=== PATIENT | female | born 1970 | race Caucasian/White ===

== ENCOUNTER → 2022-09-24 11:58 | Outpatient (CLI) | payer OTHER, MEDICAID, SELFPAY ==
--- NOTE | 2022-09-24 | DI.ECHO.S_ITS ---
[place] [facility] +---------+ : : [address] : : : : [id number] : : : : Phone: [phone] +---------+ Echocardiogram Report + + :Name: MORGAN DUKE Study Date: 09/24/2022 Height: 64 in : :[facility] ReadingLocation: Weight: 160 lb : : Gender: Female BSA: 1.8 m2 : :: 1970 Age: 52 yrs BP: 108/86 mmHg: :Reason For Study: PERICARDIAL EFFUSION : :Ordering Physician: BECKY, : :RODRIGO Performed By: Rebecca Gore : :Referring: RODRIGO ROLON : + + Interpretation Summary 1) Normal left ventricular thickness and size with low normal systolic function (EF 50-55%). 2) Normal right ventricular size and function. 3) No significant valvular abnormalities. 4) There is a large circumfrential pericardial effusion that is largest anteriorly (best seen from parasternal axis). No Echo and no doppler evidence of cardiac tamponade. 5) No prior Echo available for comparison. Procedure: A two-dimensional transthoracic echocardiogram with color flow and Doppler was performed. The study quality was technically adequate. There is no prior echocardiogram noted for this patient. The patient was in sinus rhythm with heart rates between 84-95 bpm during the exam. Left Ventricle: The left ventricle is normal in size and wall thickness. The ejection fraction is estimated to be 50-55%. There are no obvious focal wall motion abnormalities noted but poor endocardial definition reduces the sensitivity for the detection of such. Right Ventricle: The right ventricle is normal in size and function. Atria: The left atrial size is normal. Right atrial size is normal. There is no Doppler evidence for an interatrial shunt. Mitral Valve: The mitral valve is normal in structure and function. There is trace mitral regurgitation. Aortic Valve: The aortic valve is trileaflet. The aortic valve opens well. There is no aortic valve stenosis. No aortic regurgitation is present. Tricuspid Valve: The tricuspid valve is normal in structure and function. There is mild tricuspid regurgitation. The right ventricular systolic pressure is estimated to be at least 20 mmHg based on an estimated right atrial pressure of 3 mm Hg. Pulmonic Valve: The pulmonic valve is not well visualized. There is no pulmonic valvular regurgitation. Great Vessels: The aortic root is normal size. The ascending aorta could not be visualized. The IVC is of normal diameter and collapses greater than 50% with a sniff. This suggests a low right atrial pressure of 3 mm Hg. Pericardium/ Pleura There is a large circumfrential pericardial effusion that is largest anteriorly (best seen from parasternal axis). There is no pleural effusion. MMode/2D Measurements & Calculations LVIDd: 3.7 cm LVOT diam: 2.0 cm LVIDs: 2.7 cm Ao root diam: 2.6 cm FS: 28.0 % Ao Arch Diam (Prox Trans): 2.4 cm EPSS: 0.70 cm IVSd: 0.77 cm LVPWd: 0.78 cm LV paredes. diameter/BSA (cm/m^2): 2.1 LV sys. diameter/BSA (cm/m^2): 1.5 LA A2 area: 13.0 cm2 RA long axis: 4.1 cm LA A4 area: 11.5 cm2 RA area: 10.1 cm2 LA length (vol): 4.3 cm RA vol: 21.2 ml LA vol: 29.8 ml RA : 11.9 ml/m2 LA vol index: 16.7 ml/m2 IVC diam: 1.6 cm RVD1 (basal): 3.1 cm RVD2 (mid): 2.1 cm TAPSE: 1.7 cm Doppler Measurements & Calculations Ao V2 max: 139.7 cm/sec LVOT Max Lul: 89.4 cm/sec Ao V2 mean: 97.4 cm/sec LV V1 max P.2 mmHg Ao max P.8 mmHg LV V1 VTI: 17.1 cm Ao mean P.2 mmHg ALEJANDRO(I,D): 2.2 cm2 Ao V2 VTI: 24.5 cm ALEJANDRO(V,D): 2.0 cm2 sev ratio: 0.70 ALEJANDRO indexed to BSA (cm^2/m^2): 1.2 MV E max lul: 73.7 cm/sec TR max lul: 206.1 cm/sec MV A max lul: 103.1 cm/sec TR max P.0 mmHg MV E/A: 0.71 PA V2 max: 65.5 cm/sec Med Peak E' Lul: 4.5 cm/sec PA V2 mean: 48.0 cm/sec E/E' med: 16.4 PA mean P.00 mmHg Lat Peak E' Lul: 5.8 cm/sec PA pr(Accel): 13.9 mmHg E/E' lat: 12.8 E/e' average: 14.6 MV dec time: 0.18 sec [facility] 53.1 ml Reading Physician:03:49 PM
== END ==
PROVIDERS: PCP Registered Nurse; Referring Provider Internal Medicine Cardiovascular Disease; Visit Provider Internal Medicine Cardiovascular Disease
DX: I07.1 Rheumatic tricuspid insufficiency (principal); I31.39 Other pericardial effusion (noninflammatory)
CPT/HCPCS: 93306